=== PATIENT | female | born 1945 | race Caucasian/White ===

== ENCOUNTER 2019-08-24 06:46 | Day surgery (SDC) | payer MEDICARE, OTHER ==
[~2019-08-24 06:46] MED LIST: Lactated Ringers 1,000 ML IV SCH; Sodium Chloride 0.9% 10 ML Syringe FLUSH PRN
[2019-08-24] MEDS ORDERED: Lidocaine 2% 100 MG/5 ML Syringe IVPUSH ONE (06:47)
[2019-08-24] MEDS ORDERED: Propofol 200 MG/20 ML SDV IV ONE (06:47)
--- NOTE | 2019-08-24 08:21 | PCM.PN ---
- General Info Date of Service: 08/24/19 - Review of Systems Systems Review Comment:: 73 y/o female with history of colon polyps here for colonoscopy. Her last colonoscopy was 5 years ago. She is medically stable to proceed with no significant recent changes to her health status. I have discussed the proposed colonoscopy with the patient. She agrees to proceed accepting risks. - Patient Data Vitals - Most Recent: Last Vital Signs Temp 98.1 F 08/24/19 07:12 Pulse 101 H 08/24/19 07:12 Resp 16 08/24/19 07:12 BP 135/99 H 08/24/19 07:12 Pulse Ox 93 L 08/24/19 07:12 Weight - Most Recent: 167 lb Med Orders - Current: Current Medications Lactated Ringer's (Ringers, Lactated) 1,000 mls @ 125 mls/hr IV ASDIRECTED MARY Last Admin: 08/24/19 07:45 Dose: 125 mls/hr Sodium Chloride (Saline Flush) 10 ml FLUSH ASDIRECTED PRN PRN Reason: Keep Vein Open - Problem List Review Problem List Initiated/Reviewed/Updated: Yes - My Orders Last 24 Hours: My Active Orders 08/23/19 10:33 Resuscitation Status Routine 08/23/19 Dinner Nothing Per Oral Diet [DIET] 08/24/19 06:45 Patient Status [ADT] Routine Patient to Empty Bladder [RC] ASDIRECTED Verify Patient Consent Obtain [RC] ASDIRECTED Lactated Ringers [Ringers, Lactated] 1,000 ml IV ASDIRECTED Sodium Chloride 0.9% [Saline Flush] 10 ml FLUSH ASDIRECTED PRN Peripheral IV Insertion Adult [OM.PC] Routine - Assessment Assessment:: History of colon polyps - Plan Plan:: Colonoscopy
--- NOTE | 2019-08-24 09:08 | PCM.OPNOTE ---
- General Post-Op/Procedure Note Date of Surgery/Procedure: 08/24/19 Operative Procedure(s): Colonoscopy Findings: Moderate Sigmoid Diverticulosis Pre Op Diagnosis: History of colon polyps Post-Op Diagnosis: Sigmod Diverticulosis Anesthesia Technique: MAC Primary Surgeon: Jah Chavez Pathology: none Output, Urine Amount: 0 EBL in mLs: 0 Complications: None Condition: Good
[2019-08-24 09:39] VITALS: BP 144/99; PULSE 86
--- NOTE | 2019-08-24 11:58 | OR ---
DATE OF OPERATION: 08/24/2019 SURGEON: Jah Chavez MD PREOPERATIVE DIAGNOSIS: History of colon polyps. POSTOPERATIVE DIAGNOSIS: Sigmoid diverticulosis. OPERATION PERFORMED: Colonoscopy. INDICATIONS FOR SURGERY: This 73-year-old female has a known history of colon polyps. Her last colonoscopy was 5 years ago and she comes for surveillance colonoscopy. FINDINGS: No polyps were seen on today's exam. The patient does have a moderate degree of diverticulosis in the sigmoid region. The diverticula do not appear to be acutely inflamed or otherwise complicated. Colon is otherwise normal. PROCEDURE IN DETAIL: The patient was taken to the procedure room. She was given intravenous sedation and with her in the left lateral decubitus position, digital rectal exam was performed showing no rectal masses. The Olympus colonoscope was inserted into the rectum. Retroflexed examination of the rectal canal was performed. The scope was then carefully advanced under direct visualization through the entire length of the colon until the cecum was reached. Cecal acquisition was confirmed by noting normal internal cecal anatomy including the appendiceal orifice and ileocecal valve. After examining the cecum, the scope was slowly withdrawn sequentially re-examining the colonic segments until the entire colon and rectum had been fully examined. The scope was removed and the patient was taken from the procedure room in satisfactory condition. ESTIMATED BLOOD LOSS: Zero. COMPLICATIONS: None. PROGNOSIS: Good. /[id number]
== END 2019-08-24 10:00 | disposition home or self-care (01) ==
LOC: FB.SDS 06:46
PROVIDERS: ATTEND Surgery
DX: Z12.11 Encounter for screening for malignant neoplasm of colon (principal); K57.30 Diverticulosis of large intestine without perforation or abscess without bleeding; Z86.010 Personal history of colon polyps
CPT/HCPCS: 00811-QZ; J2001; J2704; J7120